=== PATIENT | female | born 2005 | race Caucasian/White ===

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

== ENCOUNTER 2025-03-14 01:01 | Emergency (ER) | payer OTHER ==
[~2025-03-14] VITALS: Wt 81.6 kg
[~2025-03-14 01:01] MED LIST changes: +METHOCARBAMOL500 M1 PO
[2025-03-14] MEDS ORDERED: SILVER SULFADIAZINE 25 GM TUBE T ONE (01:15)
[2025-03-14] MEDS ORDERED: Tdap Vaccine 0.5 ML SYR (Adult Vaccine) IM ONE (01:20)
== END 2025-03-14 01:36 | disposition home or self-care (01) ==
LOC: ED 01:01
DX: T22.311A Burn of third degree of right forearm, initial encounter (principal); Z79.899 Other long term (current) drug therapy; Z88.0 Allergy status to penicillin; X08.8XXA Exposure to other specified smoke, fire and flames, initial encounter; Y93.E9 Activity, other interior property and clothing maintenance; Y92.89 Other specified places as the place of occurrence of the external cause; Y99.0 Civilian activity done for income or pay